=== PATIENT | male | born 1955 | race Caucasian/White ===

== ENCOUNTER → 2018-06-18 | Outpatient (CLI) | payer OTHER ==
--- NOTE | 2018-06-18 21:26 | CT ---
Procedure: CT LUNG SCREENING Exam Date: 06/18/2018. Ordering Provider: Zain Skelton Clinical Indication: HX OF TOBACCO USE. 98 pack years. Quit smoking 3 years ago. This patient meets eligibility criteria for low-dose CT lung cancer screening. Comparison: None. Technique: Using a multislice scanner, sequential helical axial imaging was obtained in the thorax, 2.5 mm thickness, 2.5 mm separation, from the level of the thoracic inlet through the lung bases without IV contrast. A low dose protocol was utilized for BMI less than 30: BMI: 29. CTDI: 1.76 mGy. 120. kVp. 45 mA. DLP 69.17 mGy-centimeters. 2D sagittal and coronal reconstructed images, 6.0 mm thickness, were obtained. This exam was performed according to our departmental dose optimization program which includes use of automated exposure control, adjustment of the mA and/or kV according to patient size and/or use of iterative reconstruction technique. Nodule measurements under 10 mm are given as mean value of 3 axes diameters. FINDINGS: Lungs and large airways: 1 cm spherical nodule abutting a branch of right pulmonary artery to the lingula with Hounsfield density -28. Mass is most likely in the superior lingula. Margins are predominantly circumscribed with little or no spiculation, best seen on axial series 2, images 68-72. Bilateral small blebs predominantly in the upper lobes and predominantly centrilobular. Small subpleural 3 mm nodules in the right upper lobe, on images 59 and 60. Another 3 mm solid nodule associated with the junction of the lateral horizontal fissure and major fissure on images 68 and 69. 2 additional 3 mm nodules are visible in the subpleural right middle lobe. Groundglass density, not definitely nodules, in the anterior lateral right lower lobe, superior segment. 3 mm nodule associated with the posterior pleura in the posterior recess of the right lower lobe on image 116. 2 mm calcification associated with the superior left major fissure on image 41. Similar sized nodule associated with the inferior fissure and posterior to the lingula on image 97. 4 mm solid nodule in the inferior anterior medial left upper lobe with extension to the mediastinal pleura on image 66 and 67. 4 mm solid nodule lateral right upper lobe, subpleural, on image 52. 3 mm nodule more inferior on image 62. 4 mm solid nodule subpleural more superiorly in the left upper lobe on image 39. Pleura and space: Focal pleural thickening bilaterally with apical pleural thickening; no effusion or pneumothorax. Mediastinum and camelia: evaluation limited by low dose technique and lack of IV contrast. 2.3 x 1.5 cm node with central low-density subcarinal region. 1.1 cm and 1.0 short axis azygous nodes. 8 mm short axis node abutting the azygos vein and the SVC. 9 mm short axis precarinal node. 9 mm short axis right hilar node. 10 mm short axis inferior left hilar node. No dominant soft tissue mass. Heart and great vessels: Atherosclerotic calcifications in the proximal brachiocephalic vessels, aortic arch and descending aorta, and coronary arteries which also contain stents. Chest wall, lower neck, axillae: Evaluation also limited by same factors as described above. Almost 10 mm Short axis nodes in the bilateral axilla. Thyroid gland is visualized. Upper abdomen: Included peritoneal cavity with no fatty stranding fascial thickening free air or fluid. Included spleen negative. Gallbladder partially visualized as is the pancreas. Osseous structures: Evaluation limited by low dose MIP technique. Multiple levels of thoracic disc space narrowing. Sternotomy wires. No lytic or blastic lesions. IMPRESSION: 1. Almost completely spherical 10 mm mass in the medial superior lingula with little or no spiculation and Hounsfield density between water and fat. Abutting a branch of the lingular branch of the pulmonary artery. This could represent a pulmonary fluid cyst, aneurysm, hamartoma, or metastasis. 4 mm solid nodules in the left upper lobe as described. Multiple lymph nodes of various sizes in the mediastinum and hilum the largest is subcarinal with short axis of 1.5 cm. Emphysematous changes in the bilateral upper lobes. [facility] Best Practice guidelines: Please see below for Lung RADS category and FOLLOW-UP.* *Lung RADS category Category 4b - Suspicious - findings for which additional diagnostic testing and/or tissue sampling is recommended (greater than 15% malignancy probability). Nodules: Solid nodule(s) 15mm or larger at baseline, new or growing 8mm or larger solid nodule. Part solid nodule measuring with a solid component 8mm or greater, or with a new or growing 4mm or larger solid component. Emphysema, fibrosis, aneurysm, coronary artery calcification. Follow-up: Please return for chest CT with or without contrast, PET/CT and/or tissue sampling depending on the "probability of malignancy and comorbidities." PET/CT may be used when there is an 8mm or greater solid component. Electronically signed by: Scout Weeks MD 06/18/2018 9:23 PM CDT
== END ==
LOC: CT 09:00
PROVIDERS: ATTEND Family Medicine
DX: Z87.891 Personal history of nicotine dependence (principal); R91.8 Other nonspecific abnormal finding of lung field; J43.9 Emphysema, unspecified

== ENCOUNTER → 2019-01-19 | Outpatient (CLI) | payer MEDICARE, OTHER ==
--- NOTE | 2019-01-19 21:10 | CT ---
EXAM DESCRIPTION: Chest w/o Contrast : Computed Tomography. Clinical Indication: Follow-up pulmonary nodule from lung screening. Cigarette smoking cessation 3 years ago. 98 pack years. This patient meets eligibility criteria for low-dose CT lung cancer screening. Comparison: Low-dose CT lung cancer screening examination 03/20/2018. Technique: Using a multislice scanner, sequential helical axial imaging was obtained in the thorax, 2.5 mm thickness, 2.5 mm separation, from the level of the thoracic inlet through the lung bases without IV contrast. A low dose protocol was utilized for BMI less than 30: BMI: 29. CTDI: 1.76 mGy. 120. kVp. 45 mA. DLP 68.7 mGy-cm. 2D sagittal and coronal reconstructed images, 6.0 mm thickness, were obtained. This exam was performed according to our departmental dose optimization program which includes use of automated exposure control, adjustment of the mA and/or kV according to patient size and/or use of iterative reconstruction technique. Nodule measurements under 10 mm are given as mean value of 3 axes diameters. FINDINGS: Lungs and large airways: Again noted is a approximately 10 mm nodule lingula of the right upper lobe medially approximately 2 cm from the medial pleura at the level of the main pulmonary artery bifurcation. The mass still has circumscribed margins with no calcification and uniform Hounsfield density between -9 and -10. Stable 3.5 mm nodule and a slightly higher level also abutting the medial pleura on axial image 2/65. Upper lung lux with scattered parenchymal blebs. Another subpleural nodule less than 4 mm diameter visualized in the left upper lobe on image 2/39 and a subsolid nodule in the subpleural location of the left upper lobe on image 2/52 these are stable. Pleural parenchymal scarring inferior lingula. Subpleural solid nodule less than 3 mm diameter right middle lobe on image 2/59 stable. Perifissural nodules associated with the right major fissure and the horizontal fissure on images 2/68 and 2/75 are stable. Stable subpleural 3.7 mm solid nodule versus pleural thickening posterior lateral right lower lobe recess on image 2/109.. Pleura and space: Bilateral focal pleural thickening. No effusion or pneumothorax. Mediastinum and camelia: evaluation limited by low dose technique and lack of IV contrast. Mediastinal lymph nodes are stable with no new nodes. Largest subcarinal node contains fatty hilum and is stable. There are also mediastinal calcifications. Heart and great vessels: Coronary artery calcifications and stents with atherosclerotic calcifications included brachiocephalic vessels and thoracic aorta. Chest wall, lower neck, axillae: Evaluation also limited by same factors as described above. Axillary lymph nodes stable since the prior study. . Upper abdomen: Evaluation limited by low-dose technique. No free air or free fluid in the included peritoneal space. Gallbladder visualized Osseous structures: Evaluation limited by low dose MIP technique. Stable since the prior study. IMPRESSION: Minimal emphysematous changes in the upper lobes. Numerous bilateral nodules mostly solid and subpleural. 10 mm, spherical and smooth walled mass in the lingula medially with mostly fatty density is most likely a hamartoma. [facility] Best Practice Recommendations: please see below for Lung RADS category and FOLLOW-UP.* *Lung RADS category CATEGORY 2- Nodules with a very low likelihood (less than 1%) of becoming a clinically active cancer due to size or lack of growth. Nodules: Perifissural nodule(s) < 10 mm. (526mm3). Solid or part solid nodule(s) less than 6mm (113.1 mm3), new solid nodule less than 4mm (33.5 mm3). Ground glass nodule(s) less than 30mm (07187.2 mm3) or unchanged or slow growing ground glass nodule 30mm or greater. Cat 3 or 4 nodule unchanged for 3 or more months. FOLLOW-UP: Continue annual screening with a Low Dose Chest CT in 12 months for re-evaluation. Electronically signed by: Scout Weeks MD 01/19/2019 9:08 PM [employer]
== END ==
LOC: CT 10:00
PROVIDERS: ATTEND Family Medicine
DX: Z87.891 Personal history of nicotine dependence (principal); R91.8 Other nonspecific abnormal finding of lung field; J43.9 Emphysema, unspecified

== ENCOUNTER → 2019-10-21 | Outpatient (CLI) | payer MEDICARE, OTHER | END | disposition home or self-care (01) | LOC: MRI 13:55 | PROVIDERS: ATTEND General Practice | DX: M54.6 Pain in thoracic spine (principal) ==

== ENCOUNTER → 2020-01-30 | Outpatient (CLI) | payer MEDICARE, OTHER ==
--- NOTE | 2020-01-30 12:39 | CT ---
Procedure: CT LUNG SCREENING Exam Date: January 30, 2020. Ordering Provider: Zain Skelton Clinical Indication: hx tobacco use smoking cessation x2 years. Less than 40 pack-years history. This patient meets eligibility criteria for low-dose CT lung cancer screening. Comparison: Low-dose CT lung cancer screening examination May 2018. Technique: Using a multislice scanner, sequential helical axial imaging was obtained in the thorax, 2.5 mm thickness, 2.5 mm separation, from the level of the thoracic inlet through the lung bases without IV contrast. A low dose protocol was utilized for BMI less than 30: BMI: 24. CTDI: 1.76 mGy. 120. kVp. 45 mA. DLP 69 mGy-cm. 2D sagittal and coronal reconstructed images, 6.0 mm thickness, were obtained. This exam was performed according to our departmental dose optimization program which includes use of automated exposure control, adjustment of the mA and/or kV according to patient size and/or use of iterative reconstruction technique. Nodule measurements under 10 mm are given as mean value of 3 axes diameters. FINDINGS: Lungs and large airways: Circumscribed solid nodule medial base of the left upper lobe measures 1.3 x 1.2 cm compared to 1.1 x 1.0 cm on the prior study axial series 2, image 72. No calcification. Small bilateral parenchymal blebs in a centrilobular distribution stable. 3 mm subpleural nodule lateral right upper lobe on image 2/67 not seen on the prior study. Stable solid nodules subpleural in the right middle lobe laterally on image 2/92 and 2/100. Stable small nodule in the subpleural lateral right upper lobe on image 2/59. Right perifissural nodule on Image 2/76, left perifissural nodules images 2/41 and 2/99 stable. Subpleural nodule versus focal pleural thickening lateral left lower lobe, image 2/105, and superior segment right lower lobe image 2/63 stable. Stable subpleural nodule lateral recess of the right lower lobe on image 2/114 with no interval change. No abnormal mass or abnormally size nodule. No focal infiltrate. Pleura and space: Some of the nodules seen may represent focal pleural thickening as previously described. No acute process. Mediastinum and camelia: evaluation limited by low dose technique and lack of IV contrast. No large nodes or dominant soft tissue masses. Heart and great vessels: Coronary artery calcifications and possible stents. Atherosclerotic calcifications aortic arch brachiocephalic vessels stable.. Chest wall, lower neck, axillae: Evaluation also limited by same factors as described above. Axillary lymph nodes, larger on the left, stable since the prior study. Upper abdomen: Evaluation limited by low-dose technique. Gallbladder and adrenal glands partially visualized. Spleen is negative. No free air or free fluid. Osseous structures: Evaluation limited by low dose MIP technique. Spondylosis. Thoracic spine no foramina are narrowed bilaterally. Prior sternotomy wires. Mild arthrosis shoulder clavicle and sternal joints. IMPRESSION: 1. Emphysematous changes are stable. Dominant solid nodule left upper lobe measures 1.3 cm maximum diameter compared to 1.1 cm on the prior study, but no morphological change seen new 3 mm subpleural nodule lateral right upper lobe not seen on the prior study. Multiple bilateral subpleural and parenchymal nodules and focal pleural thickening stable.. [facility] Best Practice Recommendations: please see below for Lung RADS category and FOLLOW-UP.* *Lung RADS category CATEGORY 3 - Probably benign (1-2% malignancy probability), short term follow-up suggested. NODULES: Solid nodule(s) 6mm (113.1 mm3) to less than 8mm (268.1 mm3) at baseline, or new 4mm (33.5 mm3) to under 6mm (113.1 mm3) solid nodule. Part solid nodule total diameter >= 6mm (113.1 mm3) with solid component less than 6mm, or new less than 6mm total diameter nodule] OR new <6 mm (113.1 mm3) total diameter. GGN >= 30 mm (>=84749 mm3) on baseline CT or new. FOLLOW-UP: Please return for a Low Dose Chest CT in 6 months for re-evaluation. Electronically signed by: Scout Weeks MD 01/30/2020 12:38 PM [facility]
== END ==
LOC: CT 08:37
PROVIDERS: ATTEND Family Medicine
DX: Z12.2 Encounter for screening for malignant neoplasm of respiratory organs (principal); J43.9 Emphysema, unspecified; R91.8 Other nonspecific abnormal finding of lung field; Z87.891 Personal history of nicotine dependence